=== PATIENT | female | born 1950 | race Caucasian/White ===

== ENCOUNTER 2019-05-01 07:03 | Emergency (ER) | payer MEDICARE, OTHER ==
[~2019-05-01] VITALS: Ht 167.6 cm; Wt 99.8 kg
[~2019-05-01 07:03] MED LIST: ASPIRIN81 M2 PO; B-COMPLEX PLUS1 EACH PO; CALCIUM 500 +1 EAC5 PO; CARVEDILOL12.5 MG PO; CARVEDILOL25 MG PO; CIPRO500 MG PO; COZAAR 25 MG TA25 M1 PO; EFFIENT10 MG PO; FISH OIL 1,001000 M2 PO; IRON325 PO; KEFLEX500 MG PO; LIPITOR 20 MG T20 M1 PO; NOHOMEMEDICATIONS; NORCO 5-325 TA1 EACH PO; OMEPRAZOLE40 MG PO; PHENERGAN 25 MG25 M1 PO; TYLENOL325 MG PO; UNICOMPLEX M TA1 TA1 PO; VITAMIN D1000 UNI1 PO; VITAMIN E400 UNIT PO
[2019-05-01 08:11] LABS: CALCIUM 9.2 mg/dL (8.5-10.1); CREATININE 1.1 mg/dL (0.6-1.3); POTASSIUM 4.3 mmol/L (3.5-5.1)
[2019-05-01] MEDS ORDERED: KEFLEX500 M1 PO (08:40)
[2019-05-01] MEDS ORDERED: NORCO 5-325 TA1 EAC1 PO (08:40)
[2019-05-01 08:55] VITALS: BP 142/59
== END 2019-05-01 09:03 | disposition home or self-care (01) ==
LOC: M.ERS 07:03
PROVIDERS: Emergency Medicine Emergency Medical Services
DX: L03.116 Cellulitis of left lower limb (principal); G43.909 Migraine, unspecified, not intractable, without status migrainosus; M19.90 Unspecified osteoarthritis, unspecified site; G47.30 Sleep apnea, unspecified; I10 Essential (primary) hypertension; F17.210 Nicotine dependence, cigarettes, uncomplicated; Z91.041 Radiographic dye allergy status; Z88.8 Allergy status to other drugs, medicaments and biological substances